=== PATIENT | male | born 1955 | race Caucasian/White ===

== ENCOUNTER 2017-08-09 09:24 | Day surgery (SDC) | payer OTHER ==
[2017-08-09] MEDS ORDERED: LIDOCAINE 4% SOLUTION 50 ML BTL (10:36)
[2017-08-09] MEDS ORDERED: FENTAnyl 50 MCG/ML VIAL (10:59)
[2017-08-09] MEDS ORDERED: MIDAZOLAM 1 MG/ML 2 ML INJ ×2 (10:59)
== END 2017-08-09 12:34 | disposition home or self-care (01) ==
LOC: GIL 09:24
DX: K21.0 Gastro-esophageal reflux disease with esophagitis (principal); K29.70 Gastritis, unspecified, without bleeding
CPT/HCPCS: 43239; 88305; 88312; 88313

== ENCOUNTER 2018-04-18 08:52 | Day surgery (SDC) | payer OTHER ==
[2018-04-18] MEDS ORDERED: hydrALAzine 20 MG INJ (11:09)
[2018-04-18] MEDS ORDERED: PROPOFOL 40 ML (11:27)
== END 2018-04-18 12:36 | disposition home or self-care (01) ==
LOC: GIL 08:52
DX: R19.7 Diarrhea, unspecified (principal); K64.8 Other hemorrhoids; I10 Essential (primary) hypertension; E78.5 Hyperlipidemia, unspecified
CPT/HCPCS: 45380; 88305